=== PATIENT | female | born 1960 | race Caucasian/White ===

== ENCOUNTER → 2016-11-25 | Outpatient (CLI) | payer OTHER | LOC: M LAB 07:17 | PROVIDERS: ATTEND Internal Medicine Endocrinology, Diabetes & Metabolism | DX: E03.8 Other specified hypothyroidism (principal) ==

== ENCOUNTER → 2017-01-27 | Day surgery (SDC) | payer OTHER, SELFPAY ==
[~2017-01-27] VITALS: Ht 160 cm; Wt 48.1 kg
[~2017-01-27] MED LIST: ACETAMINOPH W/CODEINE #3 TAB UD PO PRN; BACITRACIN OINT 30GM As Ordered ONE; HYDROmorphone HCL 1 MG/ML SYRINGE (J1170) IV PRN; HYDROmorphone HCL 2 MG/ML 1ML VIAL (J1170) As Ordered ONE; LABETALOL HCL 100 MG/20 ML VIAL As Ordered ONE; LABETALOL HCL 100 MG/20 ML VIAL IV SCH; LEVO75TA4 PO; LIDOCAINE 2% INJ 100 MG/5 ML SDV (FOR ANES.) As Ordered ONE; LIDOCAINE W/EPINEPHRINE 1% 20ML VIAL As Ordered ONE; LISI-538 PO; LR 1,000 ML IV SCH; MIDAZOLAM INJ 2 MG/2 ML VIAL (J2250) As Ordered ONE; MORPHINE 10 MG/ML 1ML VIAL IV PRN; ONDANSETRON 4MG/2ML VIAL (J2405) As Ordered ONE; ONDANSETRON 4MG/2ML VIAL (J2405) IV PRN; PERCOCET 5MG/325MG TAB PO PRN; PROPOFOL 200 MG/20 ML VIAL As Ordered ONE; ROCURONIUM BROMIDE 50 MG/5 ML VIAL As Ordered ONE; SYNT50TA PO; dexameTHASONE 4 MG/ML 1ML VIAL (J1100) As Ordered ONE; fentaNYL 100 MCG/2 ML INJECTION (J3010) IV PRN; fentaNYL 250 MCG/5 ML INJECTION (J3010) As Ordered ONE; hydrALAZINE INJ 20 MG/ML VIAL IV SCH
[2017-01-27 15:34] VITALS: BP 195/84
[2017-01-27 16:40] VITALS: BP 160/78
--- NOTE | 2017-01-29 05:56 | RO ---
DATE OF PROCEDURE: 01/27/2017 PREOPERATIVE DIAGNOSIS: Right parotid tumor. POSTOPERATIVE DIAGNOSIS: Right parotid tumor. PROCEDURE: Right superficial parotidectomy. SURGEON: Dr. Sagar Krueger CORD MAKER: Dami Haque ANESTHESIA: General. DESCRIPTION OF OPERATION: Under general anesthesia, the patient was prepped and draped in the usual manner. I applied the electrodes for the facial nerve monitoring during the procedure. The patient was prepped and draped in the usual manner. I infiltrated the incision after I marked it out with lidocaine with epinephrine. I divided skin and subcutaneous tissues. I elevated the tissues off of the parotid gland. I dissected between the parotid and the external auditory canal and anterior to the sternocleidomastoid muscle to mobilize the tissues anteriorly. Then, using sharp and blunt dissection using bipolar cautery, I identified the facial nerve. Then, I followed the facial nerve branches inferior first and then the frontal temporal branch, ophthalmic branches second. I followed the nerve until it was out of the exposure area. Then, using the Harmonic scalpel, I removed the tumor. Patient tolerated the procedure well. I irrigated the area. There was no bleeding. Any smaller vessels had been ___cauterized with bipolar cautery. I stimulated the nerve to make sure it was intact, and it was. A 1/4-inch [place] drain was placed in the wound and the wound closed with interrupted #4-0 Vicryl and #5-0 nylon. Patient tolerated the procedure well and was extubated and transferred to recovery room in excellent condition. Less than 20 mL of estimated blood loss. MTDD
== END ==
LOC: M SDC 09:21
PROVIDERS: ATTEND Otolaryngology
DX: C07 Malignant neoplasm of parotid gland (principal); I10 Essential (primary) hypertension; E03.9 Hypothyroidism, unspecified; F17.200 Nicotine dependence, unspecified, uncomplicated; Z79.899 Other long term (current) drug therapy
CPT/HCPCS: 42410; 88305; J1100; J1170; J2250; J2405; J3010

== ENCOUNTER 2017-05-02 11:12 | Inpatient (IN) | payer OTHER ==
[~2017-05-02] VITALS: Ht 160 cm; Wt 47.9 kg
[~2017-05-02 11:12] MED LIST changes: -ACETAMINOPH W/CODEINE #3 TAB UD PO PRN; -BACITRACIN OINT 30GM As Ordered ONE; -HYDROmorphone HCL 1 MG/ML SYRINGE (J1170) IV PRN; -HYDROmorphone HCL 2 MG/ML 1ML VIAL (J1170) As Ordered ONE; -LABETALOL HCL 100 MG/20 ML VIAL As Ordered ONE; -LABETALOL HCL 100 MG/20 ML VIAL IV SCH; -LIDOCAINE 2% INJ 100 MG/5 ML SDV (FOR ANES.) As Ordered ONE; -LIDOCAINE W/EPINEPHRINE 1% 20ML VIAL As Ordered ONE; -LR 1,000 ML IV SCH; -MIDAZOLAM INJ 2 MG/2 ML VIAL (J2250) As Ordered ONE; -MORPHINE 10 MG/ML 1ML VIAL IV PRN; -ONDANSETRON 4MG/2ML VIAL (J2405) As Ordered ONE; -ONDANSETRON 4MG/2ML VIAL (J2405) IV PRN; -PERCOCET 5MG/325MG TAB PO PRN; -PROPOFOL 200 MG/20 ML VIAL As Ordered ONE; -ROCURONIUM BROMIDE 50 MG/5 ML VIAL As Ordered ONE; -dexameTHASONE 4 MG/ML 1ML VIAL (J1100) As Ordered ONE; -fentaNYL 100 MCG/2 ML INJECTION (J3010) IV PRN; -fentaNYL 250 MCG/5 ML INJECTION (J3010) As Ordered ONE; -hydrALAZINE INJ 20 MG/ML VIAL IV SCH
[2017-05-02] MEDS ORDERED: LISI20TA3 PO (11:25)
[2017-05-02 12:12] LABS: BASO % 0.2 % (0.0-1.0); EOS # 0.1 K/mm3 (0.0-0.50); EOS % 0.9 % (0.0-3.0); LARGE UNSTAINED CELL # 0.1 K/mm3 (0.0-0.4); LARGE UNSTAINED CELL % 0.5 % (0.0-4.0); LYMPH # 1.4 K/mm3 (1.5-4.5); LYMPH % 10.7 % (24.0-44.0); MEAN CORPUSCULAR HEMOGLOBIN 34.7 pg (27.0-33.0); MEAN CORPUSCULAR HGB CONC 35.9 g/dl (32.0-36.5); MEAN CORPUSCULAR VOLUME 96.8 fl (80.0-96.0); MONO # 0.4 K/mm3 (0.0-0.8); MONO % 2.9 % (0.0-5.0); NEUTROPHILS # 10.4 K/mm3 (1.8-7.7); NEUTROPHILS % 84.9 % (36.0-66.0); PLATELET COUNT, AUTOMATED 281 k/mm3 (150-450); RED CELL DISTRIBUTION WIDTH 12.9 % (11.5-14.5); WHITE BLOOD COUNT 12.2 K/mm3 (4.0-10.0)
[2017-05-02] MEDS ORDERED: ONDANSETRON 4MG/2ML VIAL (J2405) IV ONE (12:15)
[2017-05-02] MEDS ORDERED: NS 1,000 ML IV SCH (12:15)
[2017-05-02 12:16] LABS: INR 0.96
[2017-05-02 12:36] LABS: ALBUMIN 3.7 GM/DL (3.2-5.2); ALBUMIN/GLOBULIN RATIO 1.16 (1.00-1.93); ALKALINE PHOSPHATASE 55 U/L (45-117); ALT/SGPT 32 U/L (12-78); ANION GAP 10 MEQ/L (8-16); AST/SGOT 25 U/L (15-37); BILIRUBIN,DIRECT 0.2 MG/DL (0.0-0.2); BILIRUBIN,TOTAL 0.8 MG/DL (0.2-1.0); BLOOD UREA NITROGEN 6 MG/DL (7-18); CALCIUM LEVEL 8.4 MG/DL (8.5-10.1); CARBON DIOXIDE LEVEL 25 MEQ/L (21-32); CHLORIDE LEVEL 87 MEQ/L (98-107); CREATININE FOR GFR 0.57 MG/DL (0.55-1.02); GLOMERULAR FILTRATION RATE > 60.0 (>51); GLUCOSE, FASTING 98 MG/DL (70-105); POTASSIUM SERUM 3.4 MEQ/L (3.5-5.1); SODIUM LEVEL 122 MEQ/L (136-145); TOTAL PROTEIN 6.9 GM/DL (6.4-8.2)
[2017-05-02] MEDS: MORPHINE 4 MG/ML 1ML SYRINGE IV PRN ×2 (12:49→16:30)
[2017-05-02] MEDS ORDERED: IPRATROPIUM 0.5MG/ALBUTEROL 2.5MG INH SOL UD 3ML (DUONEB)(J7620) NEB PRN (13:00)
[2017-05-02] MEDS ORDERED: ONDANSETRON 4 MG TAB (S0181) PO PRN (13:00)
[2017-05-02] MEDS ORDERED: BISACODYL 5 MG TAB PO PRN (13:00)
[2017-05-02] MEDS ORDERED: LORazepam 2 MG TAB PO PRN (13:00)
[2017-05-02] MEDS ORDERED: NICOTINE 14 MG/24 HR TRANSDERMAL TD PRN (13:00)
[2017-05-02 13:37] LABS: FREE T4 1.3 NG/DL (0.76-1.46)
--- NOTE | 2017-05-02 14:08 | REP ---
AP PELVIS AND RIGHT HIP: 05/02/2017. Clinical history: Trauma. Findings: No prior study. Pelvic ring is intact. There is an intertrochanteric fracture of the right hip with varus deformity. Rim osteophyte in the femoral head but no fracture of the acetabulum, pubic rami, or symphysis pubis. The left hip was intact. Sacrum, SI joints, and iliac wings intact. Degenerative changes at the lower lumbar spine. Right hip: AP and frog-leg views show no subluxation or dislocation. There are degenerative changes at that hip along with the intertrochanteric fracture with varus deformity. No other findings. Impression: 1. Intertrochanteric fracture right hip with varus deformity. No subluxation, dislocation or other fracture. Signed by Saman Gonzalez MD 05/02/2017 06:17 P
--- NOTE | 2017-05-02 14:10 | REP ---
AP SUPINE CHEST: 05/02/2017. Comparison chest x-ray 01/18/2009, 04/02/2004. Clinical history: Trauma. Right hip fracture. Findings: Lungs are very hyperinflated with some emphysematous changes. There is no definite infiltrate, effusion or gross pneumothorax. Heart is not enlarged. There is no widening of the mediastinum . The pulmonary arteries are prominent centrally suggesting pulmonary artery hypertension. Bones intact. Aorta normal. Impression: 1. COPD with bullous emphysematous changes and pulmonary artery hypertension. No acute finding. Signed by Saman Gonzalez MD 05/02/2017 06:17 P
[2017-05-02 14:46] VITALS: BP 143/72
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
--- NOTE | 2017-05-02 14:57 | IPN ---
DATE OF SERVICE: 05/02/2017 She did have a chest x-ray, which as per radiology, showed chronic obstructive pulmonary disease finding with bolus emphysematous changes and pulmonary artery hypertension. No acute finding. On the hip/pelvic x-ray, it showed intertrochanteric fracture right hip with varus deformity. No subluxation, dislocation, or other fracture. So, the patient does have chronic obstructive pulmonary disease. Judicious use of oxygenation as needed and aggressive pulmonary therapy, respiratory treatment, and spirometer use if the patient undergoes surgery after procedure.
[2017-05-02] MEDS: hydrALAZINE INJ 20 MG/ML VIAL IV SCH ×2 (14:58→21:27)
[2017-05-02] MEDS: KCL 20MEQ in NS 1000ML 1,000 ML IV SCH (14:58)
[2017-05-02] MEDS: THIAMINE 100 MG TAB PO SCH ×2 (16:22→21:27)
[2017-05-02] MEDS: SENOKOT S TAB PO SCH ×2 (16:22→21:27)
[2017-05-02] MEDS: FOLIC ACID 1 MG TAB PO SCH (16:22)
[2017-05-02] MEDS: MULTIVITAMINS/MINERALS THERAP 1 TAB PO SCH (16:22)
[2017-05-02] MEDS: LEVOTHYROXINE 75MCG TABLET (0.075MG) PO SCH (16:22)
[2017-05-02 16:26] LABS: ANION GAP 12 MEQ/L (8-16); BLOOD UREA NITROGEN 6 MG/DL (7-18); CALCIUM LEVEL 8.3 MG/DL (8.5-10.1); CARBON DIOXIDE LEVEL 21 MEQ/L (21-32); CHLORIDE LEVEL 90 MEQ/L (98-107); CREATININE FOR GFR 0.48 MG/DL (0.55-1.02); GLOMERULAR FILTRATION RATE > 60.0 (>51); GLUCOSE, FASTING 104 MG/DL (70-105); POTASSIUM SERUM 3.7 MEQ/L (3.5-5.1); SODIUM LEVEL 123 MEQ/L (136-145)
[2017-05-02 16:40] VITALS: BP 143/72
[2017-05-02] MEDS: HEPARIN SOD (PORCINE) 5000 UNITS/ML VIAL SC SCH ×2 (17:33→21:27)
[2017-05-02] MEDS: MORPHINE 2 MG/ML 1ML SYRINGE IV PRN ×4 (17:34→22:59)
--- NOTE | 2017-05-02 18:13 | ECGEPIP ---
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
[2017-05-02 20:00] VITALS: BP 149/78
[2017-05-02] MEDS: IPRATROPIUM 0.5MG/ALBUTEROL 2.5MG INH SOL UD 3ML (DUONEB)(J7620) NEB SCH (20:00)
[2017-05-02 23:59] VITALS: BP 111/64
[2017-05-03] VITALS (9 sets, daily range): BP systolic 119–162; BP diastolic 63–99
[2017-05-03] MEDS: MORPHINE 2 MG/ML 1ML SYRINGE IV PRN ×7 (01:06→16:39)
[2017-05-03 02:55] LABS: MEAN CORPUSCULAR HEMOGLOBIN 35.1 pg (27.0-33.0); MEAN CORPUSCULAR HGB CONC 36.5 g/dl (32.0-36.5); MEAN CORPUSCULAR VOLUME 96.3 fl (80.0-96.0); WHITE BLOOD COUNT 9.9 K/mm3 (4.0-10.0)
[2017-05-03 03:15] LABS: ANION GAP 6 MEQ/L (8-16); BLOOD UREA NITROGEN 6 MG/DL (7-18); CALCIUM LEVEL 8.4 MG/DL (8.5-10.1); CARBON DIOXIDE LEVEL 26 MEQ/L (21-32); CHLORIDE LEVEL 92 MEQ/L (98-107); CREATININE FOR GFR 0.56 MG/DL (0.55-1.02); GLOMERULAR FILTRATION RATE > 60.0 (>51); GLUCOSE, FASTING 105 MG/DL (70-105); POTASSIUM SERUM 4.1 MEQ/L (3.5-5.1); SODIUM LEVEL 124 MEQ/L (136-145)
[2017-05-03] MEDS: KCL 20MEQ in NS 1000ML 1,000 ML IV SCH ×3 (04:34→22:52)
[2017-05-03] MEDS: LEVOTHYROXINE 75MCG TABLET (0.075MG) PO SCH (06:19)
[2017-05-03] MEDS: hydrALAZINE INJ 20 MG/ML VIAL IV SCH ×3 (06:20→22:00)
[2017-05-03] MEDS: IPRATROPIUM 0.5MG/ALBUTEROL 2.5MG INH SOL UD 3ML (DUONEB)(J7620) NEB SCH ×3 (08:00→20:00)
[2017-05-03] MEDS: MULTIVITAMINS/MINERALS THERAP 1 TAB PO SCH (09:43)
[2017-05-03] MEDS: THIAMINE 100 MG TAB PO SCH ×2 (09:43→22:53)
[2017-05-03] MEDS: FOLIC ACID 1 MG TAB PO SCH (09:43)
[2017-05-03] MEDS: SENOKOT S TAB PO SCH ×2 (09:43→22:52)
--- NOTE | 2017-05-03 10:27 | CR ---
DATE OF SERVICE: 05/02/2017 CHIEF COMPLAINT: Right hip pain. HISTORY OF PRESENT ILLNESS: The patient states that she fell this morning shortly after breakfast. She cannot really remember the details but presented promptly to the emergency room with an isolated complaint of a right hip pain. NO other active complaints. PAST MEDICAL HISTORY: Significant for alcoholism, drinking about six beers per day. Also hypertension, thyroid disease. . PAST SURGICAL HISTORY: She had a parotid gland removal earlier this year as well as previous history of and laparoscopy. CURRENT MEDICATIONS: - lisinopril - hydrochlorothiazide once daily - levothyroxine once daily as well. SOCIAL HISTORY: One pack per day smoker for about 40 years. 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 Otherwise as above. REVIEW OF SYSTEMS: No fevers, chills, nausea, vomiting. No diarrhea, constipation. No chest pain. No shortness of breath. On examination, awake, alert, and oriented times three. Well-appearing, somewhat thin female in no acute distress. Head is normocephalic atraumatic. Extraocular muscles intact. Cardiovascular: Regular rate and rhythm. Pulmonary: No increased work of breathing. Abdomen is soft, nontender, nondistended. Focused examination of the right lower extremity: There is low grade swelling and tenderness about the hip joint. Typical shortened and externally rotated out position. Distally, she has 2+ dorsalis pedis and posterior tibialis pulse with less than 2 second capillary refill and sensation to light touch on all of her toes. The extensor hallucis longus (EHL), flexor hallucis longus (FHL), tibialis anterior, tibialis posterior are intact on the right lower extremity. The ipsilateral foot, leg, knee and thigh is grossly nontender and traumatic and the skin is intact. On the left lower extremity is a negative log roll and no gross tenderness. Bilateral upper extremities: She is grossly moving her bilateral upper extremities freely with no obvious pain or dysfunction. She moves the C-spine freely as well with no discomfort. X-rays of the pelvis and the right hip showed displaced intertrochanteric hip fracture into varus. Labs were reviewed. They are available in the electronic medical records. She does currently have a sodium level of 122. She has been afebrile with stable vital signs. ASSESSMENT: Alcoholic female with a right intertrochanteric hip fracture. PLAN: The internal medicine services evaluated the patient. The have made recommendations regarding the sodium level management. The plan at this time is that they will repeat a BMP at around 4 pm and make a decision at that time whether we may proceed with surgery or whether it would be better to wait. Surgical plan, at this time, would be to go forward with a right hip fracture repair likely with a cephalomedullary nail or possibly with plate and screw. I did discuss all the risks and benefits of operative and nonoperative management at length with the patient and she did sign the surgical consent in my presence. edited: 05/07/2017 [id number] tkf JONNY
[2017-05-03 10:31] LABS: MEAN CORPUSCULAR HEMOGLOBIN 34.8 pg (27.0-33.0); MEAN CORPUSCULAR HGB CONC 35.5 g/dl (32.0-36.5); MEAN CORPUSCULAR VOLUME 98.1 fl (80.0-96.0); RED CELL DISTRIBUTION WIDTH 12.7 % (11.5-14.5); WHITE BLOOD COUNT 10.9 K/mm3 (4.0-10.0)
[2017-05-03 10:57] LABS: ANION GAP 12 MEQ/L (8-16); BLOOD UREA NITROGEN 6 MG/DL (7-18); CARBON DIOXIDE LEVEL 22 MEQ/L (21-32); CHLORIDE LEVEL 96 MEQ/L (98-107); CREATININE FOR GFR 0.47 MG/DL (0.55-1.02); GLOMERULAR FILTRATION RATE > 60.0 (>51); GLUCOSE, FASTING 105 MG/DL (70-105); SODIUM LEVEL 130 MEQ/L (136-145)
[2017-05-03 12:17] LABS: ANION GAP 7 MEQ/L (8-16); BLOOD UREA NITROGEN 6 MG/DL (7-18); CALCIUM LEVEL 8.7 MG/DL (8.5-10.1); CARBON DIOXIDE LEVEL 24 MEQ/L (21-32); CHLORIDE LEVEL 98 MEQ/L (98-107); CREATININE FOR GFR 0.47 MG/DL (0.55-1.02); GLOMERULAR FILTRATION RATE > 60.0 (>51); GLUCOSE, FASTING 99 MG/DL (70-105); SODIUM LEVEL 129 MEQ/L (136-145)
[2017-05-03 12:23] LABS: OSMOLALITY SERUM 261 MOSM/KG (275-295)
[2017-05-03 12:36] LABS: OSMOLALITY URINE 253 MOSM/KG (500-800)
--- NOTE | 2017-05-03 16:10 | IPN ---
DATE: 05/03/2017 SUBJECTIVE: The patient is seen and examined in the room today. The patient is complaining of excruciating pain of the right hip. Any type of hip movement will elicit severe and intolerable pain. The patient denies any palpitations even though the patient has a persistent tachycardia monitored on the telemetry. Denies any fever or chills. Denies worsening anxiety. Per the patient, the patient has been taking 4-6 bottles of beer on a daily basis. The patient does not remember how long she has been consuming alcohol. OBJECTIVE: VITAL SIGNS: Temperature is 99.3, pulse is 121, respiratory rate 19, blood pressure is 142/65, pulse oximetry is 92% in room air. GENERAL: Mild to moderate distress secondary to right hip pain, alert and oriented times three. HEENT: Normocephalic, atraumatic. Extraocular motor grossly intact. CARDIOVASCULAR: Tachycardic, positive S1, S2, regular rate. LUNGS: Clear to auscultation bilaterally. ABDOMEN: Soft, nontender, nondistended. Bowel sounds present. No rebound. EXTREMITIES: Any type of movement of the right lower extremity can reproduce intolerable pain for the patient. No lower extremity edema. No sign of cyanosis. LABORATORY DATA: WBC is 10.9, hemoglobin 12.1, hematocrit 34.2, platelet count is 250. Sodium 129, potassium 4, chloride is 98, carbon dioxide 24, BUN is 6, creatinine 0.47, GFR greater than 60, fasting glucose is 99. Urine osmolality is 261. Calcium is 8.7. Cortisol AM is 19. ASSESSMENT AND PLAN: 1. Right hip fracture. Orthopedic surgery is consulted. The patient has a scheduled surgery today. The presurgical optimization note was performed yesterday. Please refer to the initial history and physical. Initially, there was some concern from the sodium level. Therefore, anesthesiologist recommends improving the patient's sodium level to 126-129 range. We rechecked the repeated sodium level and currently sodium is 129. 2. Hyponatremia, secondary to hydrochlorothiazide and chronic alcohol consumption. The patient is on free water fluid restriction with IV support. 3. Chronic alcohol abuse, on Clinical Bridgman Withdrawal Assessment (CIWA) protocol. The patient is on thiamine, folic acid, and multivitamin. 4. History of tobacco abuse. The patient is on nicotine patch. 5. Hypothyroidism, on Synthroid. The patient has a normal thyroid-stimulating hormone (TSH) and free T4 within normal range. 6. Hypertension. The patient is on IV hydralazine. 7. Deep vein thrombosis (DVT) prophylaxis, per orthopedic team.
--- NOTE | 2017-05-03 17:23 | CR.PDOC ---
[facility] Consultation Consultation CHIEF COMPLAINT: Right hip pain. HISTORY OF PRESENT ILLNESS: Patient is a 56 y/o alcoholic female with hypertension and hypothyroidism that sustained a mechanical fall from standing height yesterday sustaining a right proximal femur fracture. She was hyponatremic on admission and has been admitted to hospitalist service for optimization. Today she is cleared by medicine and anesthesia. Patient localized pain to the right hip. Denies associated numbness, tingling, burning sensations about RLE. No other complaints. PAST MEDICAL HISTORY: 1) alcoholism, drinking about six beers per day. 2) hypertension 3) hypothyroidism PAST SURGICAL HISTORY: She had a parotid gland removal earlier this year as well as previous history of and laparoscopy. CURRENT MEDICATIONS: - lisinopril - hydrochlorothiazide once daily - levothyroxine once daily as well. SOCIAL HISTORY: One pack per day smoker for about 40 years. 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 Alcoholic per HPI REVIEW OF SYSTEMS: No fevers, chills, nausea, vomiting. No diarrhea, constipation. No chest pain. No shortness of breath. Physical exam: Vitals: Mild tachycardia, otherwise normal General: Cachetic woman appears older than stated age, no acute distress HEENT: Atraumatic, poor dentition Cardiovascular: 2+ DP, PT pulses, BCR all digits RLE Pulmonary: No increased work of breathing. Neuro: sensation/motor intact in RLE tibial, sural, saphenous, SPN, DPN distributions Musculoskeletal: Focused exam of the RLE demonstrates a shortened and externally rotated position. Diffusely swollen and tendr about right hip. On the left lower extremity is a negative log roll and no gross tenderness. Bilateral upper extremities: She is grossly moving her bilateral upper extremities freely with no obvious pain or dysfunction. She moves the C-spine freely as well with no discomfort. X-rays of the pelvis and the right hip showed displaced intertrochanteric hip fracture. Full length femur films pending. Labs were reviewed. Sodium on admission 122. Today 129. Remainder within normal limits. ASSESSMENT: Alcoholic female with a right intertrochanteric hip fracture. PLAN: The internal medicine services evaluated and optimized the patient and provided appropriate risk stratification. I discussed with the patient the risks , benefits, indications, and alternatives of operative and nonoperative management of her right proximal femur fracture and recommend open versus closed reduction and cephallomedullary nail fixation. I also counseled the patient that I will be her operating surgeon, but her follow up care will be conducted by [facility]. She expressed understanding with this arrangement and informed consent was obtained. Post op recommendations: -6 weeks Lovenox 40mg SC daily for DVT prophylaxis -Assistive devices to minimize falls risk -Treatment of alcoholism -Evaluation of bone density and initiation of treatment for osteoporosis by PCM after initial fracture healing. Vital Signs/I&O Vital Signs Date Time Temp Pulse Resp B/P (MAP) Pulse Ox O2 Delivery O2 Flow Rate FiO2 05/03/17 16:50 98.6 111 19 162/76 96 Room Air I&O- Last 24 Hours up to 6 AM 05/03/17 05:59 Intake Total 1035 ml Output Total 625 ml Balance 410 ml Laboratory Data Labs 24H Laboratory Tests 2 05/02/17 23:27: Urine Random Osmolality 459L, Urine Random Creatinine 92.3, Urine Random Sodium 31, Urine Random Chloride 52, Osmolality 257L 05/03/17 02:40: Anion Gap 6L, Glomerular Filtration Rate > 60.0, Blood Urea Nitrogen 6L, Creatinine 0.56, Sodium Level 124L, Potassium Level 4.1, Chloride Level 92L, Carbon Dioxide Level 26, Calcium Level 8.4L 05/03/17 10:26: Anion Gap 12, Glomerular Filtration Rate > 60.0, Blood Urea Nitrogen 6L, Creatinine 0.47L, Sodium Level 130L, Potassium Level 4.0, Chloride Level 96L, Carbon Dioxide Level 22, Calcium Level 8.0L 05/03/17 11:32: Osmolality 261L, Anion Gap 7L, Glomerular Filtration Rate > 60.0, Blood Urea Nitrogen 6L, Creatinine 0.47L, Sodium Level 129L, Potassium Level 4.0, Chloride Level 98, Carbon Dioxide Level 24, Calcium Level 8.7, Cortisol AM Sample 19.0 05/03/17 12:01: Urine Random Osmolality 253L, Urine Random Sodium 40, Urine Random Chloride 57 CBC/BMP Laboratory Tests 05/03/17 02:40 Red Blood Count 3.51 L, Mean Corpuscular Volume 96.3 H, Mean Corpuscular Hemoglobin 35.1 H, Mean Corpuscular Hemoglobin Concent 36.5, Red Cell Distribution Width 13.0, Calcium Level 8.4 L 05/03/17 10:26 Red Blood Count 3.48 L, Mean Corpuscular Volume 98.1 H, Mean Corpuscular Hemoglobin 34.8 H, Mean Corpuscular Hemoglobin Concent 35.5, Red Cell Distribution Width 12.7, Calcium Level 8.0 L 05/03/17 11:32 Calcium Level 8.7 Microbiology Microbiology 05/02/17 Urine Culture, Received Pending 05/02/17 Urine Culture, Received Pending Allergies Coded Allergies: No Known Allergies (Unverified , 01/22/17) Home Medications Scheduled (Lisinopril/Hydrochlorothi 20-25 mg) 1 Tab Tab, 1 TAB PO DAILY, (Reported) Levothyroxine Sodium (Synthroid) 75 Mcg Tab, 75 MCG PO DAILY, (Reported) AMADO AMES MD May 03, 2017 17:23
[2017-05-03] MEDS ORDERED: BUPIVACAINE HCL 0.5% 30 ML VIAL As Ordered ONE (17:59)
[2017-05-03] MEDS ORDERED: THROMBIN SOLN 20,000 UNITS KIT As Ordered ONE (17:59)
[2017-05-03] MEDS ORDERED: ISOVUE-300 61% 50ML VIAL (Q9967) As Ordered ONE (17:59)
[2017-05-03] MEDS ORDERED: LIDOCAINE 1% SDV INJ 30 ML VIAL As Ordered ONE (17:59)
[2017-05-03] MEDS ORDERED: HEPARIN SOD (PORCINE) 5000 UNITS/ML VIAL As Ordered ONE (17:59)
--- NOTE | 2017-05-03 18:31 | REP ---
RIGHT FEMUR, FIVE VIEWS: HISTORY: Fracture. COMPARISON: 05/02/2017 There is an intertrochanteric fracture. There is varus angulation. There is no dislocation. IMPRESSION: Intertrochanteric fracture. Signed by Benjamín Morales MD 05/03/2017 06:36 P
[2017-05-03] MEDS ORDERED: ceFAZolin 1GM INJ (J0690) As Ordered ONE ×2 (18:58→20:11)
[2017-05-03] MEDS ORDERED: PROPOFOL 200 MG/20 ML VIAL As Ordered ONE (20:28)
[2017-05-03] MEDS ORDERED: MIDAZOLAM INJ 2 MG/2 ML VIAL (J2250) As Ordered ONE (20:28)
[2017-05-03] MEDS ORDERED: fentaNYL 100 MCG/2 ML INJECTION (J3010) As Ordered ONE (20:28)
[2017-05-03] MEDS ORDERED: LIDOCAINE 2% INJ 100 MG/5 ML SDV (FOR ANES.) As Ordered ONE (20:28)
[2017-05-03] MEDS ORDERED: ONDANSETRON 4MG/2ML VIAL (J2405) As Ordered ONE (20:49)
[2017-05-03] MEDS ORDERED: KETOROLAC 60 MG/2 ML VIAL (J1885) As Ordered ONE (20:56)
[2017-05-03] MEDS ORDERED: ONDANSETRON 4MG/2ML VIAL (J2405) IV PRN (21:45)
[2017-05-03] MEDS ORDERED: fentaNYL 100 MCG/2 ML INJECTION (J3010) IV PRN (21:45)
[2017-05-03] MEDS ORDERED: MEPERIDINE INJ 25 MG/ML VIAL (J2175) IV PRN (21:45)
[2017-05-03] MEDS ORDERED: PERCOCET 5MG/325MG TAB PO PRN ×3 (21:45)
[2017-05-03] MEDS ORDERED: LR 1,000 ML IV SCH (21:45)
[2017-05-03] MEDS ORDERED: METOCLOPRAMIDE INJ 10MG/2ML VIAL (J2765) IV PRN (21:45)
[2017-05-04] VITALS (11 sets, daily range): BP systolic 120–147; BP diastolic 58–76
[2017-05-04 05:42] LABS: MEAN CORPUSCULAR HEMOGLOBIN 34.3 pg (27.0-33.0); MEAN CORPUSCULAR HGB CONC 34.4 g/dl (32.0-36.5); MEAN CORPUSCULAR VOLUME 99.7 fl (80.0-96.0); RED CELL DISTRIBUTION WIDTH 12.7 % (11.5-14.5); WHITE BLOOD COUNT 7.9 K/mm3 (4.0-10.0)
[2017-05-04 05:48] LABS: ANION GAP 10 MEQ/L (8-16); BLOOD UREA NITROGEN 7 MG/DL (7-18); CALCIUM LEVEL 8.2 MG/DL (8.5-10.1); CARBON DIOXIDE LEVEL 23 MEQ/L (21-32); CHLORIDE LEVEL 102 MEQ/L (98-107); CREATININE FOR GFR 0.49 MG/DL (0.55-1.02); GLOMERULAR FILTRATION RATE > 60.0 (>51); GLUCOSE, FASTING 100 MG/DL (70-105); POTASSIUM SERUM 3.8 MEQ/L (3.5-5.1); SODIUM LEVEL 135 MEQ/L (136-145)
[2017-05-04] MEDS: LEVOTHYROXINE 75MCG TABLET (0.075MG) PO SCH (05:56)
[2017-05-04] MEDS: hydrALAZINE INJ 20 MG/ML VIAL IV SCH ×3 (05:56→20:59)
[2017-05-04] MEDS ORDERED: SLF 3 ML SYR IV PRN (07:00)
[2017-05-04] MEDS: IPRATROPIUM 0.5MG/ALBUTEROL 2.5MG INH SOL UD 3ML (DUONEB)(J7620) NEB SCH ×3 (07:30→20:00)
--- NOTE | 2017-05-04 07:44 | REP ---
Right hip intraoperative fluoroscopic views: Total 11 views are performed during gamma nail placement. The procedure is performed by the orthopedic surgeon, Dr. Momin. A total of 11 intraoperative views are performed. The gamma nail and fracture in satisfactory positions alignment. An interlocking screw is noted. Fluoroscopic exposure time is 75 seconds. Fluoroscopic images are performed with last image hold technology. These images require no additional radiation. Signed by Bruce Luevano MD 05/04/2017 07:36 A
--- NOTE | 2017-05-04 07:52 | REP ---
Right hip two views postoperative study: There is a gamma nail stabilizing an intertrochanteric fracture in satisfactory position alignment. Interference screw is noted. Skin ronel are incidentally noted. Signed by Bruce Luevano MD 05/04/2017 07:43 A
[2017-05-04] MEDS: ENOXAPARIN 40 MG/0.4 ML SYRINGE (J1650) SC SCH (09:35)
[2017-05-04] MEDS: FOLIC ACID 1 MG TAB PO SCH (09:36)
[2017-05-04] MEDS: MULTIVITAMINS/MINERALS THERAP 1 TAB PO SCH (09:36)
[2017-05-04] MEDS: THIAMINE 100 MG TAB PO SCH ×2 (09:36→20:59)
[2017-05-04] MEDS: SENOKOT S TAB PO SCH ×2 (09:36→20:59)
[2017-05-04] MEDS: MIRALAX *UNIT DOSE* 17GM PACKET PO SCH (09:36)
[2017-05-04] MEDS: MOM 30ML SUSPENSION UDC PO SCH (09:36)
[2017-05-04] MEDS ORDERED: LOVE1INJ SC (10:01)
[2017-05-04] MEDS ORDERED: PERC5TAB12 PO (10:01)
--- NOTE | 2017-05-04 11:25 | RO ---
DATE OF PROCEDURE: 05/03/2017 PREPROCEDURE DIAGNOSIS: Right intertrochanteric femur fracture. POSTPROCEDURE DIAGNOSIS: Right intertrochanteric femur fracture. PROCEDURE PERFORMED: Right proximal femur cephalomedullary nail fixation. SURGEON: Dr. Miguel Michael INTERNET DEVELOPER: RODGER De La Rosa ANESTHESIA: General endotracheal anesthesia. ANTIBIOTICS GIVEN: 2 grams of Ancef given within 1 hour of incision. IMPLANT USED: Synthes TFN-Advanced 11 mm x 200 mm nail, 130 degrees with a 90 mm blade and 32 mm x 5 mm locking screw. MATERIALS SENT TO LAB: None. COMPLICATIONS: None. INDICATION FOR PROCEDURE: Astrid Barrientos is a 56-year-old alcoholic female who sustained a mechanical fall from a standing height resulting in a right hip intertrochanteric femur fracture. She was hyponatremic on presentation. She was medically optimized by the hospitalist service and was appropriately risk stratified and cleared for surgery by medicine and anesthesia service. I discussed with the patient and her family the risks, benefits, indications and alternatives of the operative versus nonoperative treatment of her right proximal femur fracture. I also counseled the patient that I will be her operating surgeon, but her followup care will be conducted by [facility] surgeons. The patient expressed understanding of this arrangement and provided informed consent for right proximal femur closed versus open reduction and internal fixation. INTRAOPERATIVE FINDINGS: A stable intertrochanteric femur fracture that was stable after fixation. DESCRIPTION OF PROCEDURE: The patient was positively identified in the preoperative holding area where the surgical site was marked. She was then placed in the operating room where she was placed under general endotracheal anesthesia. Sequential compression device (SCD) was placed on the nonoperative extremity for deep vein thrombosis (DVT) prophylaxis. She was then placed supine on the fracture table with all bony prominences appropriately padded. Prior to prepping and draping, I obtained fluoroscopic images and obtained closed reduction using traction and internal rotation and adduction of the right leg. After marking the spot for the C-Arm, the patient was then prepped and draped in the usual sterile fashion. A final time-out was performed. I made a 3 cm incision about three fingerbreadths proximal and posterior to the tip of the greater trochanter, dissected through skin and subcutaneous tissue and introduced the 3.2 mm threaded guide pin in the tip of the greater trochanter and centered on lateral fluoroscopic imaging. I advanced the guide pin to the level of the lesser trochanter. I then used the standard opening reamer again to the level of the lesser trochanter. The was all done while maintaining reduction. The guide pin and opening reamer were removed. A long guidewire was placed into the canal of the femur to aid in passage of nail. The 11 x 200 mm nail was then passed into the femur to an appropriate depth using fluoroscopic guidance. Once the appropriate depth was placed, the guide for the helical blade was placed. Another 3 cm incision was made in the lateral aspect of the femur for entry of the helical blade guide. The 3.2 mm guide pin for the blade was placed centered on the femoral neck on AP and lateral fluoroscopy to an appropriate depth. It was then measured to a depth of 90 mm. The femoral neck was then reamed to a depth of 90 mm, followed by placement of the helical blade, confirmed on AP and lateral fluoroscopic imaging that the blade was appropriately placed and reduction was maintained. I then locked the proximal portion of the nail to create a fixed angle construct. This was then followed by placement of the distal interlocking screw using a standard drill guide. After placement of the interlocking screw, final fluoroscopic images were taken confirming adequate placement of all hardware and anatomic reduction of the proximal femur. The wounds were then thoroughly irrigated with normal saline and closed in layers with #2-0 Vicryl for subcutaneous layer, ronel for the skin. Sterile dressings were applied, this ended the procedure. I was present and scrubbed in for all critical portions of the case. POSTOPERATIVE PLAN: The patient will be weightbearing as tolerated to the right lower extremity. She will begin physical therapy tomorrow, she will begin Lovenox for deep vein thrombosis (DVT) prophylaxis for a period of 4 to 6 weeks. edited: 05/05/2017 [id number] mariely FULLER
[2017-05-04] MEDS: SLF 3 ML SYR IV SCH ×2 (14:30→21:00)
--- NOTE | 2017-05-04 17:44 | IPNPDOC ---
Subjective Date Seen The patient was seen on 05/04/17. Subjective Chief Complaint/HPI Patient seen and examined at the bedside. States that she is feeling well and denies any acute complaints of chest pain, palpitations, or any shortness of breath. Objective Physical Examination General Exam: Positive: Alert, Cooperative, No Acute Distress ENT Exam: Positive: Atraumatic, Mucous membr. moist/pink Neck Exam: Negative: JVD Chest Exam: Positive: Clear to auscultation, Normal air movement Heart Exam: Positive: Tachycardic, Normal S1, Normal S2 Telemetry: Positive: Sinus Abdomen Exam: Positive: Soft, Negative: Tenderness Extremity Exam: Positive: Other (Right Hip noted to have surgical dressing. ROM limited 2/2 recent surgery. Neurovascularly intact disctally.) Assessment /Plan Plan/VTE VTE Prophylaxis Ordered?: Yes Plan/Urinary Catheter Reason for insertion/continuin: Perioperative Plan Right hip fracture s/p Fixation Pain control, DVT prophylaxis as per surgery Persistent Tachycardia HR ranging from 100-140s EKG notable for sinus tachycardia I do believe that this is likely 2/2 from Alcohol withdrawal Continue Ativan as needed per CIWA protocol Patient otherwise asymptomatic w/o complaints of chest pain, SOB, palpitations, or any other pain TSH, T4 within normal limits I have expressed to the patient the need for possibly starting a beta rudy, or calcium channel rudy medication--however she has refused this Risks, benefits, and alternative therapies also discussed--patient acknowledges this and still refuses to add medication to slow down her heart rate We will continue to monitor on Telemetry for now Hyponatremia 2/2 above, resolved Chronic alcohol abuse On Clinical [place] Withdrawal Assessment (CIWA) protocol. cont thiamine, folic acid, and multivitamin. History of tobacco abuse Nicotine patch ordered Hypothyroidism TSH, T4 wnl Cont on Synthroid Hypertension, stable Cont current regimen Deep vein thrombosis (DVT) prophylaxis per orthopedic team. Dispo--we will continue to monitor the patient's tachycardia on telemetry. Physical therapy on board for functional optimization and clearance. Anticipate discharge in the next 24-48 hours pending clinical improvement. VS, I&O, 24H, Fishbone Vital Signs/I&O Vital Signs Date Time Temp Pulse Resp B/P (MAP) Pulse Ox O2 Delivery O2 Flow Rate FiO2 05/04/17 14:29 140/67 05/04/17 12:16 Room Air 05/04/17 12:00 98.6 120 18 96 05/04/17 04:00 2.0 I&O- Last 24 Hours up to 6 AM 05/04/17 06:00 Intake Total 1785 ml Output Total 805 ml Balance 980 ml Laboratory Data 24H LABS Laboratory Tests 2 05/04/17 05:04: Anion Gap 10, Glomerular Filtration Rate > 60.0, Blood Urea Nitrogen 7, Creatinine 0.49L, Sodium Level 135L, Potassium Level 3.8, Chloride Level 102, Carbon Dioxide Level 23, Calcium Level 8.2L CBC/BMP Laboratory Tests 05/04/17 05:04 Red Blood Count 3.03 L, Mean Corpuscular Volume 99.7 H, Mean Corpuscular Hemoglobin 34.3 H, Mean Corpuscular Hemoglobin Concent 34.4, Red Cell Distribution Width 12.7, Calcium Level 8.2 L Microbiology Microbiology 05/02/17 Urine Culture - Final, Complete 05/02/17 Urine Culture - Final, Complete NIKOLAS BELLO MD May 04, 2017 17:44
[2017-05-05 00:14] VITALS: BP 147/74
[2017-05-05] MEDS: IPRATROPIUM 0.5MG/ALBUTEROL 2.5MG INH SOL UD 3ML (DUONEB)(J7620) NEB SCH ×3 (01:39→14:00)
[2017-05-05 04:13] VITALS: BP 124/59
[2017-05-05 05:25] LABS: MEAN CORPUSCULAR HEMOGLOBIN 34.6 pg (27.0-33.0); MEAN CORPUSCULAR HGB CONC 34.6 g/dl (32.0-36.5); MEAN CORPUSCULAR VOLUME 99.9 fl (80.0-96.0); WHITE BLOOD COUNT 9.3 K/mm3 (4.0-10.0)
[2017-05-05 05:35] LABS: ANION GAP 8 MEQ/L (8-16); BLOOD UREA NITROGEN 4 MG/DL (7-18); CALCIUM LEVEL 8.1 MG/DL (8.5-10.1); CARBON DIOXIDE LEVEL 24 MEQ/L (21-32); CHLORIDE LEVEL 102 MEQ/L (98-107); CREATININE FOR GFR 0.48 MG/DL (0.55-1.02); GLOMERULAR FILTRATION RATE > 60.0 (>51); GLUCOSE, FASTING 102 MG/DL (70-105); POTASSIUM SERUM 3.9 MEQ/L (3.5-5.1); SODIUM LEVEL 134 MEQ/L (136-145)
[2017-05-05 05:58] VITALS: BP 124/59
[2017-05-05] MEDS: hydrALAZINE INJ 20 MG/ML VIAL IV SCH ×2 (05:58→14:00)
[2017-05-05] MEDS: SLF 3 ML SYR IV SCH ×2 (06:01→14:00)
[2017-05-05] MEDS: LEVOTHYROXINE 75MCG TABLET (0.075MG) PO SCH (06:01)
[2017-05-05 07:40] VITALS: BP 139/67
[2017-05-05 08:50] VITALS: BP 139/67
[2017-05-05] MEDS: MOM 30ML SUSPENSION UDC PO SCH (09:00)
[2017-05-05] MEDS: MIRALAX *UNIT DOSE* 17GM PACKET PO SCH (09:00)
[2017-05-05] MEDS: SENOKOT S TAB PO SCH (09:00)
[2017-05-05] MEDS: FOLIC ACID 1 MG TAB PO SCH (09:23)
[2017-05-05] MEDS: MULTIVITAMINS/MINERALS THERAP 1 TAB PO SCH (09:24)
[2017-05-05] MEDS: THIAMINE 100 MG TAB PO SCH (09:24)
[2017-05-05] MEDS: ENOXAPARIN 40 MG/0.4 ML SYRINGE (J1650) SC SCH (09:25)
[2017-05-05] MEDS ORDERED: METO-346 PO (11:18)
--- NOTE | 2017-05-08 15:07 | DS.PDOC ---
Discharge Summary General Date of Admission May 02, 2017 at 13:52 Date of Discharge 05/05/17 Specialist/Consultants Involve: AMADO AMES MD Discharge Summary PROCEDURES PERFORMED DURING STAY: Right proximal femur cephalo-medullary nail fixation ADMITTING DIAGNOSES: 1. . Intertrochanteric fracture of the right hip s/p right proximal femur cephalo-medullary nail fixation 2. . Hyponatremia 3. . Persistent sinus tachycardia DISCHARGE DIAGNOSES: 1. . Intertrochanteric fracture of the right hip s/p right proximal femur cephalo-medullary nail fixation 2. . Hyponatremia 3. . Persistent sinus tachycardia COMPLICATIONS/CHIEF COMPLAINT: Intertrochanteric Fracture Of Rt Hip. HISTORY OF PRESENT ILLNESS: . 56-year-old female past medical history of hypothyroidism, hypertension, COPD, and alcohol abuse presented to the ER after she sustained a fall. 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 She states that prior to her presentation to the ER, she came home after work, had a few drinks, and subsequently went to sleep. She states that she awoke to go to the bathroom later in the evening and subsequently fell on her right hip. She states that this was a mechanical fall and that she took a "misstep. "She denies any prodromal symptoms of lightheadedness, dizziness, chest pain, palpitations, shortness of breath, abdominal pain, or any nausea/family/diarrhea. In addition, the patient denies noting any trauma to the head. She subsequently presented to the ER for further evaluation and management. In the ER, an x-ray of the right hip revealed an intertrochanteric fracture of the right hip. In addition, the patient was noted to have a serum sodium level of 122. The patient was admitted under the hospitalist service for further evaluation and management. Consult was placed orthopedic surgery for evaluation of the patient's fresh. During hospitalization, the patient's serum sodium was corrected with gentle IV fluid hydration. She suffered no neurological changes associated with this. In addition, the patient did go to the operating room for orthopedic surgery and had a right proximal femur cephalo-medullary nail fixation. Of note, during the patient's hospitalization she was noted to be persistently tachycardic. She was monitored on the telemetry floor and her heart rate was noted to be between 110s and 150s in sinus tachycardia. I did discuss the need to obtain an echocardiogram and to start possible beta blockade or calcium channel rudy medications. However, the patient declined any further testing or trying any of the aforementioned medications. I did discuss risks, benefits, and alternative therapies for her tachycardia. The patient acknowledged full understanding of this, and declined further treatment. I did discuss with her my concern of her heart rate being so elevated. She reported that she was asymptomatic and would follow-up with her primary care physician. The patient was cleared by physical therapy and was eager to return home. The patient decided to leave AGAINST MEDICAL ADVICE. I did advise her that an elevated heart rate could potentially lead to a heart attack, and . She acknowledged understanding of this and urged that she would follow-up with her primary care physician. I did prescribe her a low dose beta rudy medication, and she reported that she would consider starting this medication "once I am back home and situated." I have advised the patient to follow-up with her primary care physician within one week. In addition she is to follow-up with orthopedic surgery within 2-4 weeks. The patient has been advised to return back to the ER for any acute emergencies. DISCHARGE MEDICATIONS: Please see below. ALLERGIES: Please see below. PHYSICAL EXAMINATION ON DISCHARGE: VITAL SIGNS: Please see below. General Exam: Positive: Alert, Cooperative, No Acute Distress ENT Exam: Positive: Atraumatic, Mucous membr. moist/pink Neck Exam: Negative: JVD Chest Exam: Positive: Clear to auscultation, Normal air movement Heart Exam: Positive: Tachycardic, Normal S1, Normal S2 Telemetry: Positive: Sinus Abdomen Exam: Positive: Soft, Negative: Tenderness Extremity Exam: Positive: Other (Right Hip noted to have surgical dressing. ROM limited 2/2 recent surgery. Neurovascularly intact disctally.) LABORATORY DATA: Please see below. IMAGING: AP PELVIS AND RIGHT HIP: 05/02/2017. Clinical history: Trauma. Findings: No prior study. Pelvic ring is intact. There is an intertrochanteric fracture of the right hip with varus deformity. Rim osteophyte in the femoral head but no fracture of the acetabulum, pubic rami, or symphysis pubis. The left hip was intact. Sacrum, SI joints, and iliac wings intact. Degenerative changes at the lower lumbar spine. Right hip: AP and frog-leg views show no subluxation or dislocation. There are degenerative changes at that hip along with the intertrochanteric fracture with varus deformity. No other findings. Impression: 1. Intertrochanteric fracture right hip with varus deformity. No subluxation, dislocation or other fracture. PROGNOSIS: Unstable ACTIVITY: As tolerated. DIET: . 2 g low sodium diet DISCHARGE PLAN: DISPOSITION: Against Medical Advice. DISCHARGE INSTRUCTIONS: 1. . Follow-up with primary care physician within one week 2. . Follow-up with orthopedic surgery within 2-4 weeks 3. . Take medications as prescribed 4. Return to the ER for any acute emergencies DISCHARGE CONDITION: Stable. TIME SPENT ON DISCHARGE: Greater than 30 minutes. Vital Signs/I&Os Vital Signs Date Time Temp Pulse Resp B/P (MAP) Pulse Ox O2 Delivery O2 Flow Rate FiO2 05/05/17 08:50 Room Air 05/05/17 08:50 102 139/67 05/05/17 07:40 97.9 20 97 05/04/17 04:00 2.0 Microbiology Microbiology 05/02/17 Urine Culture - Final, Complete 05/02/17 Urine Culture - Final, Complete Discharge Medications Scheduled (Lisinopril/Hydrochlorothi 20-25 mg) 1 Tab Tab, 1 TAB PO DAILY, (Reported) Enoxaparin Sodium (Lovenox) 40 Mg/0.4 Ml Inj, 40 MG SC DAILY Levothyroxine Sodium (Synthroid) 75 Mcg Tab, 75 MCG PO DAILY, (Reported) Metoprolol Tartrate (Metoprolol Tartrate) 12.5 Mg Halftab, 12.5 MG PO BID Scheduled PRN Oxycodone/Acetaminophen (Percocet 5-325 mg) 1 Tab Tab, 1-2 TAB PO Q4H PRN for PAIN Allergies Coded Allergies: No Known Allergies (Unverified , 01/22/17) NIKOLAS BELLO MD May 08, 2017 15:07
== END 2017-05-05 16:14 | disposition left against medical advice (07) | DRG 308 ==
LOC: M ED 11:12 → EDBD 11:12 → M ED INP 13:52 → M PCU 16:34
PROVIDERS: ADMIT Internal Medicine; ATTEND Internal Medicine
PROC: 0SS904Z Reposition Right Hip Joint with Internal Fixation Device, Open Approach (ICD-10-PCS; principal; 2017-05-03 17:00)
DX: S72.141A Displaced intertrochanteric fracture of right femur, initial encounter for closed fracture (principal); E87.1 Hypo-osmolality and hyponatremia; I10 Essential (primary) hypertension; E03.9 Hypothyroidism, unspecified; F17.210 Nicotine dependence, cigarettes, uncomplicated; W18.09XA Striking against other object with subsequent fall, initial encounter; Y92.003 Bedroom of unspecified non-institutional (private) residence as the place of occurrence of the external cause; Y99.8 Other external cause status; E87.6 Hypokalemia; F10.239 Alcohol dependence with withdrawal, unspecified; J44.9 Chronic obstructive pulmonary disease, unspecified; Z79.899 Other long term (current) drug therapy

== ENCOUNTER → 2018-05-03 | Outpatient (REF) | payer OTHER | LOC: M LAB REF 17:53 | DX: L72.0 Epidermal cyst (principal) | CPT/HCPCS: 88304 ==

== ENCOUNTER 2021-09-30 16:19 | Emergency (ER) | payer OTHER, SELFPAY ==
[~2021-09-30] VITALS: Ht 160 cm; Wt 41.0 kg
[~2021-09-30 16:19] MED LIST changes: -LISI-538 PO; +LISI20TA33 PO; +LISI20TA37 PO; +LOVE1INJ SC; +METO-346 PO; +PERC5TAB12 PO
[2021-09-30] MEDS ORDERED: ALTEPLASE 100MG VIAL IV ONE (17:10)
[2021-09-30] MEDS ORDERED: ALTEPLASE RECOMBINANT IV ONE (17:10)
[2021-09-30 17:11] LABS: BASO # 0.1 10^3/uL (0.0-0.2); BASO % 0.2 % (0.0-1.0); HEMATOCRIT 32.5 % (36.0-47.0); HEMOGLOBIN 10.8 g/dl (12.0-15.5); LYMPH # 1.8 10^3/uL (1.5-5.0); LYMPH % 4.9 % (24.0-44.0); MEAN CORPUSCULAR HEMOGLOBIN 29.4 pg (27.0-33.0); MEAN CORPUSCULAR HGB CONC 33.2 g/dl (32.0-36.5); MEAN CORPUSCULAR VOLUME 88.6 fl (80.0-96.0); MONO % 4.7 % (2.0-8.0); NEUTROPHILS # 32.9 10^3/uL (1.5-8.5); NEUTROPHILS % 88.8 % (36.0-66.0); PLATELET COUNT, AUTOMATED 514 10^3/uL (150-450); RED BLOOD COUNT 3.67 10^6/uL (4.00-5.40)
[2021-09-30 17:14] LABS: INR 1.15; PROTHROMBIN TIME 15.1 SECONDS (12.7-14.5)
[2021-09-30 17:15] LABS: PARTIAL THROMBOPLASTIN TIME 32.2 SECONDS (25.9-37.0)
[2021-09-30] MEDS ORDERED: ALTEPLASE 100MG VIAL As Ordered ONE (17:15)
[2021-09-30 17:23] LABS: CALCIUM LEVEL 8.5 MG/DL (8.8-10.2); CREATININE FOR GFR 1.19 MG/DL (0.55-1.30); ETHYL ALCOHOL (ETHANOL) 0.006 % (0.000-0.010); GLOMERULAR FILTRATION RATE 48.9 (>45); POTASSIUM SERUM 4.2 MEQ/L (3.5-5.1)
[2021-09-30] MEDS ORDERED: ISOVUE-370 76% 100ML VIAL As Ordered ONE (17:33)
[2021-09-30 18:08] VITALS: BP 162/85
[2021-09-30] MEDS ORDERED: SODIUM CHLORIDE 0.9% 50 ML IV ONE (18:10)
[2021-09-30 18:13] LABS: RSV AMPLIFICATION NEGATIVE (NEGATIVE)
[2021-09-30 18:14] LABS: CK-MB VALUE MASS 6.4 NG/ML (<3.6); MB/CK RELATIVE INDEX 4.54 (< OR =4)
[2021-09-30 18:41] LABS: MONO # 1.8 10^3/uL (0.0-0.8)
== END 2021-09-30 18:09 | disposition short-term general hospital (02) ==
LOC: EDBD 16:19 → M ED 16:19
DX: I63.9 Cerebral infarction, unspecified (principal); I48.91 Unspecified atrial fibrillation; J44.9 Chronic obstructive pulmonary disease, unspecified; E07.9 Disorder of thyroid, unspecified; F10.20 Alcohol dependence, uncomplicated; F17.210 Nicotine dependence, cigarettes, uncomplicated
CPT/HCPCS: 70450; 70496; 70498; 71045; 80047; 80048; 82077; 82550; 82553; 84484; 85025; 85610; 85730; 86850; 86900; 86901; 87631; 93005; 93041; 94760; 96365; 99285; J2997; Q9967